=== PATIENT | female | born 1935 | race Caucasian/White ===

== ENCOUNTER → 2016-12-29 | Outpatient (CLI) | payer MEDICARE, OTHER ==
[~2016-12-29] VITALS: Ht 167.6 cm; Wt 72.6 kg
[~2016-12-29] MED LIST: ALPHAGAN P OP SO5 ML OP; B-122500 MCG SL; BACTRIM DS TAB1 EACH PO; ELIQUIS 5 MG TAB5 MG PO; HYDROCHLOROTHIA25 MG PO; ISOPTO CARPINE15 M2 OD; ISTALOL5 ML OP; LIPITOR TAB 2020 MG PO; LOSARTAN POTASS50 MG PO; METOPROLOL SUCC50 MG PO; MULTAQ 400 MG400 MG PO; NEXIUM40 MG PO; NORVASC 5 MG TAB5 MG PO; NORVASC5 MG PO; VITAMIN D350000 UNIT PO; WELCHOL 625 MG625 MG PO; ZETIA 10 MG TAB10 MG PO
== END ==
LOC: OPSV 11-03 10:00
DX: M81.0 Age-related osteoporosis without current pathological fracture (principal)
CPT/HCPCS: 96365; J3489; J7050

== ENCOUNTER → 2017-03-14 | Outpatient (CLI) | payer MEDICARE, OTHER | LOC: KOH-I 09:35 | DX: M25.551 Pain in right hip (principal); M25.552 Pain in left hip; M25.851 Other specified joint disorders, right hip; M25.852 Other specified joint disorders, left hip | CPT/HCPCS: 72170 ==

== ENCOUNTER 2017-04-17 08:40 | Inpatient (IN) | payer MEDICARE, OTHER ==
[~2017-04-17] VITALS: Ht 162.6 cm; Wt 72.6 kg
[~2017-04-17 08:40] MED LIST changes: -B-122500 MCG SL; -BACTRIM DS TAB1 EACH PO; -ELIQUIS 5 MG TAB5 MG PO; -LOSARTAN POTASS50 MG PO; -MULTAQ 400 MG400 MG PO; -NORVASC 5 MG TAB5 MG PO; -VITAMIN D350000 UNIT PO; -WELCHOL 625 MG625 MG PO; -ZETIA 10 MG TAB10 MG PO
[2017-04-17 10:22] LABS: HEMOGLOBIN 13.2 gm/dl (12.3-15.3); RED BLOOD COUNT 4.32 M/UL (4.00-5.10); WHITE BLOOD COUNT 2.2 K/UL (4.5-11.0)
[2017-04-17] MEDS ORDERED: WELCHOL 625 MG625 MG PO (18:01)
[2017-04-17] MEDS ORDERED: ZETIA 10 MG TAB10 MG PO (18:18)
[2017-04-17] MEDS ORDERED: LOSARTAN POTASS50 MG PO (18:18)
[2017-04-17] MEDS ORDERED: VITAMIN D350000 UNIT PO (18:19)
[2017-04-18] MEDS ORDERED: B-122500 MCG SL (04:30)
[2017-04-18 04:38] LABS: HEMOGLOBIN 11.5 gm/dl (12.3-15.3); RED BLOOD COUNT 3.85 M/UL (4.00-5.10)
[2017-04-18 19:56] LABS: HEMOGLOBIN 11.3 gm/dl (12.3-15.3); RED BLOOD COUNT 3.74 M/UL (4.00-5.10)
[2017-04-19 05:59] LABS: HEMOGLOBIN 10.3 gm/dl (12.3-15.3); RED BLOOD COUNT 3.48 M/UL (4.00-5.10)
[2017-04-19 06:08] LABS: BUN/CREATININE RATIO 11 (0-10); GAMMA GLUTAMYL TRANSPEPTIDASE 80 U/L (7-64)
[2017-05-08] MEDS ORDERED: NORVASC 5 MG TAB5 MG PO (00:59)
[2017-05-09] MEDS ORDERED: ELIQUIS 5 MG TAB5 MG PO (10:04)
[2017-05-09] MEDS ORDERED: MULTAQ 400 MG400 MG PO (10:05)
[2017-05-09] MEDS ORDERED: BACTRIM DS TAB1 EACH PO (10:06)
== END 2017-04-19 10:00 | disposition home or self-care (01) | DRG 865 ==
LOC: ER1 08:40 → ZEROF 14:35 → MED SURG 4 17:10
PROVIDERS: Family Medicine; ADMIT Internal Medicine
DX: B34.9 Viral infection, unspecified (principal); D61.811 Other drug-induced pancytopenia; E86.0 Dehydration; I95.9 Hypotension, unspecified; E87.6 Hypokalemia; R53.1 Weakness; I10 Essential (primary) hypertension; K21.9 Gastro-esophageal reflux disease without esophagitis; M79.1 Myalgia; E55.9 Vitamin D deficiency, unspecified; Z96.652 Presence of left artificial knee joint; T46.5X5A Adverse effect of other antihypertensive drugs, initial encounter
CPT/HCPCS: 36415; 71010; 80048; 80053; 80076; 82248; 82550; 82553; 82607; 82746; 82977; 83010; 83605; 83615; 83874; 83921; 84132; 84443; 84484; 85025; 86140; 86618; 86738; 87040; 87081; 87880; 93005; 96361; 96365; 96372; 99285; J1442; J2543; J7050; Q9962

== ENCOUNTER 2021-04-02 15:09 | Emergency (ER) | payer MEDICARE, OTHER ==
[~2021-04-02 15:09] MED LIST changes: +B-122500 MCG SL; +BACTRIM DS TAB1 EACH PO; +ELIQUIS 5 MG TAB5 MG PO; +KEFLEX CAP 500500 MG PO; +LOSARTAN POTASS50 MG PO; +MULTAQ 400 MG400 MG PO; +NORVASC 5 MG TAB5 MG PO; +TESSALON PERLE100 MG PO; +VITAMIN D350000 UNIT PO; +WELCHOL 625 MG625 MG PO; +ZETIA 10 MG TAB10 MG PO
[2021-04-02 15:37] LABS: HEMOGLOBIN 14.4 gm/dl (12.3-15.3); RED BLOOD COUNT 4.57 M/UL (4.00-5.10); WHITE BLOOD COUNT 6.8 K/UL (4.5-11.0)
[2021-04-02 15:58] LABS: BUN/CREATININE RATIO 25 (0-10)
== END 2021-04-02 19:45 | disposition home or self-care (01) ==
LOC: ER1 15:09
PROVIDERS: Nurse Practitioner
DX: R07.9 Chest pain, unspecified (principal); I48.91 Unspecified atrial fibrillation; E78.5 Hyperlipidemia, unspecified; I10 Essential (primary) hypertension; Z90.49 Acquired absence of other specified parts of digestive tract; Z79.01 Long term (current) use of anticoagulants; Z79.899 Other long term (current) drug therapy
CPT/HCPCS: 71045; 80053; 82550; 82553; 83735; 83874; 84484; 85025; 93005; 99285

== ENCOUNTER → 2021-09-07 | Outpatient (CLI) | payer MEDICARE, OTHER | LOC: KOH-I 08:05 | DX: M47.26 Other spondylosis with radiculopathy, lumbar region (principal); M51.16 Intervertebral disc disorders with radiculopathy, lumbar region; M48.061 Spinal stenosis, lumbar region without neurogenic claudication | CPT/HCPCS: 72148 ==

== ENCOUNTER → 2021-10-21 | Outpatient (CLI) | payer MEDICARE, OTHER | LOC: HEART 5 08:08 | DX: Z01.810 Encounter for preprocedural cardiovascular examination (principal); I20.9 Angina pectoris, unspecified; I08.1 Rheumatic disorders of both mitral and tricuspid valves; I27.20 Pulmonary hypertension, unspecified | CPT/HCPCS: 78452; 93306; A9502; J2785 ==

== ENCOUNTER → 2021-11-09 | Outpatient (CLI) | payer MEDICARE, OTHER | LOC: KOH-I 10:55 | DX: M48.061 Spinal stenosis, lumbar region without neurogenic claudication (principal); M51.36 Other intervertebral disc degeneration, lumbar region | CPT/HCPCS: 72131 ==

== ENCOUNTER → 2021-12-15 | Outpatient (CLI) | payer MEDICARE, OTHER | LOC: EXRD 11-15 09:30 | DX: M81.0 Age-related osteoporosis without current pathological fracture (principal); M85.88 Other specified disorders of bone density and structure, other site | CPT/HCPCS: 77080 ==

== ENCOUNTER 2022-07-06 14:09 | Emergency (ER) | payer MEDICARE, OTHER ==
[2022-07-06 15:35] LABS: RED BLOOD COUNT 4.42 M/UL (4.00-5.10); WHITE BLOOD COUNT 8.2 K/UL (4.5-11.0)
[2022-07-06 15:57] LABS: BUN/CREATININE RATIO 25 (0-10)
[2022-07-06] MEDS ORDERED: ONDANSETRON ODT4 MG SL (17:40)
== END 2022-07-06 19:28 | disposition home or self-care (01) ==
LOC: ER1 14:09
PROVIDERS: Emergency Medicine
DX: I10 Essential (primary) hypertension (principal); R53.1 Weakness; I48.91 Unspecified atrial fibrillation; Z90.49 Acquired absence of other specified parts of digestive tract
CPT/HCPCS: 80053; 81001; 82550; 82553; 84484; 85025; 87086; 93005; 96374; 96376; 99285; J2405

== ENCOUNTER 2022-07-07 16:44 | Emergency (ER) | payer MEDICARE, OTHER ==
[~2022-07-07 16:44] MED LIST changes: +ONDANSETRON ODT4 MG SL
[2022-07-07 17:24] LABS: HEMOGLOBIN 13.4 gm/dl (12.3-15.3); RED BLOOD COUNT 4.22 M/UL (4.00-5.10); WHITE BLOOD COUNT 6.2 K/UL (4.5-11.0)
== END 2022-07-07 22:04 | disposition home or self-care (01) ==
LOC: ER1 16:44
PROVIDERS: Family Medicine
DX: R03.0 Elevated blood-pressure reading, without diagnosis of hypertension (principal); I48.91 Unspecified atrial fibrillation
CPT/HCPCS: 70450; 80053; 82550; 82553; 84484; 85025; 99284